=== PATIENT | male | born 1930 | race Caucasian/White ===

== ENCOUNTER → 2018-03-14 13:03 | Outpatient (CLI) | payer MEDICARE ==
[~2018-03-14 13:03] MED LIST: INDOCIN25 MG PO; OMEPRAZOLE20 M1 PO
== END | disposition home or self-care (01) ==
LOC: D.CT 13:00
DX: R51 Headache (principal)

== ENCOUNTER 2018-03-15 09:44 | Emergency (ER) | payer MEDICARE ==
[~2018-03-15] VITALS: Ht 172.7 cm; Wt 70.0 kg
[2018-03-15 09:48] VITALS: Ht 172.7 cm; Wt 70.0 kg
[2018-03-15] MEDS ORDERED: OMEPRAZOLE20 M1 PO (09:50)
[2018-03-15] MEDS ORDERED: INDOCIN25 MG PO (12:19)
[2018-03-15 12:42] VITALS: BP 121/76
[2018-03-15 15:23] LABS: ERYTHROCYTE SEDIMENTATION RATE 44 mm/hr (0-30)
== END 2018-03-15 12:43 | disposition home or self-care (01) ==
LOC: D.ER 09:44
PROVIDERS: Emergency Medicine
DX: R51 Headache (principal); I10 Essential (primary) hypertension; K21.9 Gastro-esophageal reflux disease without esophagitis

== ENCOUNTER 2018-09-04 16:16 | Emergency (ER) | payer MEDICARE, BC ==
[2018-09-04 16:36] VITALS: Ht 172.7 cm
[2018-09-04 21:10] LABS: APPEARANCE CLEAR (CLEAR); BILIRUBIN NEGATIVE (NEGATIVE); COLOR YELLOW (YELLOW); GLUCOSE NEGATIVE (NEGATIVE); KETONE NEGATIVE (NEGATIVE); NITRITE NEGATIVE (NEGATIVE); PROTEIN NEGATIVE (NEGATIVE); SPECIFIC GRAVITY 1.015 (1.005-1.020); UROBILINOGEN NORMAL (NORMAL)
[2018-09-04] MEDS ORDERED: TORADOL10 MG PO (21:24)
[2018-09-04 21:55] VITALS: BP 132/77
== END 2018-09-04 22:27 | disposition home or self-care (01) ==
LOC: D.ER 16:16
PROVIDERS: Family Medicine
DX: M54.5 Low back pain (principal)